=== PATIENT | male | born 1950 | race Caucasian/White ===

== ENCOUNTER 2024-11-10 12:14 | Emergency (ER) | payer OTHER, MEDICARE ==
[2024-11-10 12:50] LABS: #Basophils 0.0 thou/uL (0.0-0.2); #Eosinophils 0.1 thou/uL (0.0-0.7); #Lymphocytes 1.0 thou/uL (1.20-3.40); #Monocytes 0.4 thou/uL (0.11-0.59); #Neutrophils 5.1 thou/uL (1.40-6.50); %Basophils 0.6 % (0.0-1.0); %Eosinophils 1.6 % (0.0-10.0); %Lymphocytes 15.0 % (21.0-51.0); %Monocytes 6.5 % (0.0-10.0); %Neutrophils 76.3 % (42.0-75.0); Hematocrit 32.7 % (42.0-52.0); Hemoglobin 11.0 g/dL (14.0-18.0); Mean Corpuscular Hemoglobin 29.8 pg (27.0-31.0); Mean Corpuscular Volume 88.3 fl (78.0-98.0); Platelet Count 176 10x3/uL (130-400); Red Blood Cell (RBC) Count 3.71 mill/uL (4.70-6.10); White Blood Cell (WBC) Count 6.7 10x3/uL (4.8-10.8)
[2024-11-10 13:01] LABS: ALT (SGPT) 13 U/L (Less than 45); AST (SGOT) 21 U/L (11-34); Albumin 3.2 g/dL (3.1-4.5); Alkaline Phosphatase 46 U/L (40-110); Anion Gap 17 mmol/L (10-20); BUN (Urea Nitrogen) 20 mg/dL (8.4-25.7); Bilirubin, Total 0.9 mg/dL (0.3-1.2); Calc. Creatinine Clearance 0 mL/min (70-130); Calcium 8.9 mg/dL (7.8-10.44); Carbon Dioxide 25 mmol/L (23-31); Chloride 105 mmol/L (98-107); Globulin 2.9 g/dL (2.4-3.5); Glucose 67 mg/dL (83-110); Lipase 9 U/L (8-78); Potassium 3.6 mmol/L (3.5-5.1); Sodium 143 mmol/L (136-145); Troponin I 0.040 ng/mL (< 0.028)
[2024-11-10] MEDS ORDERED: cefTRIAXone (ROCEPHIN) 2 GM VIAL ONE (14:59)
[2024-11-10 15:42] LABS: Troponin I 0.018 ng/mL (< 0.028)
[2024-11-10] MEDS ORDERED: Azithromycin 250 MG TAB ONE (15:55)
[2024-11-10] MEDS ORDERED: HYDROcodone/Acetaminophen 10/325 mg Tablet ONE (15:55)
== END 2024-11-10 16:11 | disposition home or self-care (01) ==
LOC: MADERS 12:14
DX: J15.9 Unspecified bacterial pneumonia (principal); R07.81 Pleurodynia; I12.9 Hypertensive chronic kidney disease with stage 1 through stage 4 chronic kidney disease, or unspecified chronic kidney disease; N18.9 Chronic kidney disease, unspecified; E10.22 Type 1 diabetes mellitus with diabetic chronic kidney disease; J44.9 Chronic obstructive pulmonary disease, unspecified; K21.9 Gastro-esophageal reflux disease without esophagitis; E78.5 Hyperlipidemia, unspecified; E03.9 Hypothyroidism, unspecified; E66.9 Obesity, unspecified; Z79.899 Other long term (current) drug therapy; Z79.890 Hormone replacement therapy; Z79.4 Long term (current) use of insulin; Z87.891 Personal history of nicotine dependence
CPT/HCPCS: 36415; 71045; 71250; 74177; 80053; 83690; 84484; 85025; 93005; 94760; 96365; J0696